=== PATIENT | female | born 1950 | race Caucasian/White ===

== ENCOUNTER → 2017-04-22 | Outpatient (CLI) | payer BC ==
--- NOTE | 2017-04-22 15:46 | MR ---
EXAMINATION TYPE: MR hip LT wo con DATE OF EXAM: 04/22/2017 COMPARISON: NONE HISTORY: Left hip pain Multiplanar, multisequence images of the left hip were acquired. Diffusion weighted imaging was perfo rmed. FINDINGS: The femoral heads maintain a normal rounded curvature without flattening. There is no evidence of T1 hypointense fracture line within the left hip or pelvis. No bone marrow edema is seen within the left hip. At least labral degeneration is seen of the anterior superior acetabular labrum as there is heterogen ous increased PD signal. No evidence of labral detachment. Minimal degenerative changes demonstrated as cephalad joint space narrowing. Bilateral minimal increased signal is seen at the greater trochant ers at the location of the trochanteric bursa which may clinically correlate with mild bursitis. Ther e is partial visualization of degenerative disc disease at L5-S1. Uterine masses that are likely uter ine fibroids are also seen that are T2 hypointense. IMPRESSION: 1. No evidence of avascular necrosis or femoral fracture either proximal femur. 2. At least labral degeneration of the anterior superior left glenoid labrum. If there is further jame picion for labral tear MR arthrography could be performed for increased sensitivity. No labral detach ment is seen. 3. Mild left femoral acetabular arthropathy. 4. Minimal increased bilateral signal near the greater trochanters which could relate to mild bursiti s. 5. Probable uterine fibroids. 6. Partial visualization of degenerative disc disease at L5-S1. There is concern for herniation MR of the lumbar spine could be performed.
== END | disposition home or self-care (01) ==
LOC: RADMRIMAIN 12:36
PROVIDERS: ATTEND Family Medicine
DX: M71.552 Other bursitis, not elsewhere classified, left hip (principal); M12.88 Other specific arthropathies, not elsewhere classified, other specified site

== ENCOUNTER → 2017-04-25 | Outpatient (CLI) | payer BC ==
--- NOTE | 2017-04-25 16:26 | BD ---
EXAMINATION TYPE: MG DEXA axial skeleton. DATE OF EXAM: 04/25/2017 COMPARISON: NONE CLINICAL HISTORY: Height: 5 FT 1 IN Weight: 119 FRAX RISK QUESTIONS: Alcohol (3 or more units per day): NO Family History (Parent hip fracture): NO Glucocorticoids (More than 3mos): NO (Ex: prednisone, prednisolone, methylprednisolone, dexamethasone, and hydrocortisone). History of Fracture in Adulthood: YES Secondary Osteoporosis: 1. Type 1 Diabetes: NO 2. Hyperthyroidism: NO 3. Menopause before 45: YES 4. Malnutrition: NO 5. Chronic liver disease: NO Rheumatoid Arthritis: NO Current Tobacco Use: NO RISK FACTORS HISTORY OF: History of Wrist Fracture: LT WRIST When: 1989 Active: YES Postmenopausal woman: AGE 42 MEDICATIONS: Additional Medications: AMBIEN OCCASIONAL Additional History: EXAM MEASUREMENTS: Bone mineral densitometry was performed using the [employer] System. Bone mineral density as measured about the Lumbar spine is: ----- L1-L4(G/cm2): 0.955 T Score Values are as follows: ----- L2: -2.1 ----- L3: -1.1 ----- L4: -2.1 ----- L1-L4: -1.9 Bone mineral density has: Decreased -1.1% since study of: 2013 Bone mineral density about the R hip (g/cm2): 0.754 Bone mineral density about the L hip (g/cm2): 0.748 T Score values are as follows: -----R Neck: -2.0 -----L Neck: -2.1 -----R Total: -1.7 -----L Total: -1.6 Bone mineral density has: Decreased -2.6% since study of: 2013 IMPRESSION: Osteopenia (T Score between -2.5 and -1 as noted by T score values There is slightly increased risk of fracture and the patient may be considered for treatment. Re-Screen 2-5 years. NOTE: T-SCORE=SD OF THE YOUNG ADULT MEAN.
--- NOTE | 2017-04-26 13:17 | MM ---
Reason for exam: additional evaluation requested from abnormal screening. Last mammogram was performed 1 year and 1 month ago. History: Patient is postmenopausal. Family history of breast cancer in aunt. MG Screening Mammo w CAD Bilateral CC and MLO view(s) were taken. Prior study comparison: April 04, 2016, bilateral MG screening mammo w CAD. January 01, 2014, bilateral MG screening mammo w CAD. The breast tissue is heterogeneously dense. This may lower the sensitivity of mammography. Focal asymmetry, ill defined, stable, right upper outer quadrant. No significant changes when compared with prior studies. ASSESSMENT: Benign, BI-RAD 2 RECOMMENDATION: Routine screening mammogram of both breasts in 1 year.
== END | disposition home or self-care (01) ==
LOC: RADBDWWP 14:17
PROVIDERS: ATTEND Family Medicine
DX: Z12.31 Encounter for screening mammogram for malignant neoplasm of breast (principal); M85.88 Other specified disorders of bone density and structure, other site
CPT/HCPCS: 77080; G0202

== ENCOUNTER → 2023-04-22 | Outpatient (CLI) | payer MEDICARE ==
--- NOTE | 2023-04-23 13:08 | CA ---
Transthoracic Echo Report Name: Luci Malik Age: 72 Gender: F : 1950 Exam Date: 04/22/2023 15:53 Exam Location: [facility] Ht (in): 60 Wt (lb): 123 Ordering Physician: Forrest Mauricio DO Attending/Referring Phys: Over[employer] Es Dunne RDCS Procedure CPT: Indications: R01.1 CARDIAC MURMUR, UNSPECIFIED Cardiac Hx: Technical Quality: Fair Contrast 1: Total Dose (mL): Contrast 2: Total Dose (mL): MEASUREMENTS (Male / Female) Normal Values 2D ECHO LV Diastolic Diameter PLAX 4.1 cm 4.2 - 5.9 / 3.9 - 5.3 cm LV Systolic Diameter PLAX 2.7 cm IVS Diastolic Thickness 0.8 cm 0.6 - 1.0 / 0.6 - 0.9 cm LVPW Diastolic Thickness 1.0 cm 0.6 - 1.0 / 0.6 - 0.9 cm LV Relative Wall Thickness 0.4 LVOT Diameter 1.7 cm LA Volume 41.9 cm??? 18 - 58 / 22 - 52 cm??? LA Volume Index 27.1 cm???/m??? 16 - 28 cm???/m??? M-MODE Aortic Root Diameter MM 2.4 cm LA Systolic Diameter MM 2.9 cm LA Ao Ratio MM 1.2 AV Cusp Separation MM 1.7 cm DOPPLER AV Peak Velocity 151.0 cm/s AV Peak Gradient 9.1 mmHg AV Mean Velocity 102.8 cm/s AV Mean Gradient 4.6 mmHg AV Velocity Time Integral 29.3 cm LVOT Peak Velocity 110.3 cm/s LVOT Peak Gradient 4.9 mmHg LVOT Velocity Time Integral 23.8 cm LVOT Stroke Volume 56.3 cm??? LVOT Stroke Volume Index 37.1 ml/m??? LVOT Cardiac Index 2074.6 cm???/min???m??? AV Area Cont Eq vti 1.9 cm??? AV Area Cont Eq pk 1.7 cm??? MV Peak Velocity 81.0 cm/s MV Peak Gradient 2.6 mmHg MV Mean Velocity 44.0 cm/s MV Mean Gradient 0.9 mmHg MV Velocity Time Integral 24.0 cm MV Area PHT 3.4 cm??? Mitral E Point Velocity 69.3 cm/s Mitral A Point Velocity 93.5 cm/s Mitral E to A Ratio 0.7 MV Deceleration Time 225.7 ms MV E' Velocity 4.8 cm/s Mitral E to MV E' Ratio 14.4 TR Peak Velocity 208.7 cm/s TR Peak Gradient 17.4 mmHg Right Ventricular Systolic Press 22.4 mmHg FINDINGS Left Ventricle Normal Left ventricular size, wall thickness, systolic function with no obvious regional wall motion abnormalities. Normal Left ventricular diastolic filling pattern. Left ventricular ejection fraction is estimated at 50-55 %. Right Ventricle Normal right ventricular size and function. Right Atrium Normal right atrial size. Left Atrium Normal left atrial size. Mitral Valve Structurally normal mitral valve. No mitral stenosis, regurgitation or prolapse. Mild mitral annular calcification. Aortic Valve Trileaflet aortic valve. No aortic valve stenosis or regurgitation. Tricuspid Valve Structurally normal tricuspid valve. Trace to mild tricuspid regurgitation. Pulmonic Valve Trace pulmonic regurgitation. Pericardium No pericardial effusion. Aorta Normal size aortic root and proximal ascending aorta. CONCLUSIONS Left ventricle ejection fraction at the lower limits of normal Right ventricle appears to be enlarged Prominent posterior pericardial stripe Previewed by: Dr. Spencer Emery MD (Electronically Signed) Final Date: 23 April 2023 13:07
== END | disposition home or self-care (01) ==
LOC: RADECHMAIN 15:26
PROVIDERS: ATTEND Internal Medicine Cardiovascular Disease
DX: R01.1 Cardiac murmur, unspecified (principal)
CPT/HCPCS: 93306